=== PATIENT | male | born 1945 | race Caucasian/White ===

== ENCOUNTER → 2020-09-20 | Outpatient (CLI) | payer MEDICARE, OTHER ==
[~2020-09-20] MED LIST: CLOPIDOGREL75 MG PO; ECOTRIN81 MG PO; FOLIC ACID 1 MG1 MG PO; HYDROCODON-ACE1 EAC4 PO; K-DUR TAB 10 M10 MEQ PO; LEVOFLOXACIN500 MG PO; LOPRESSOR 25 MG25 MG PO; LORTAB 5-325 M1 EACH PO; OMNICEF 300 MG300 MG PO; PRINIVIL20 MG PO; ZANTAC300 MG PO
== END ==
LOC: KOH-I 10:41
DX: M54.5 Low back pain (principal); M54.89 Other dorsalgia; M47.816 Spondylosis without myelopathy or radiculopathy, lumbar region
CPT/HCPCS: 72110

== ENCOUNTER 2020-10-02 15:55 | Emergency (ER) | payer MEDICARE, OTHER ==
[~2020-10-02 15:55] MED LIST changes: -HYDROCODON-ACE1 EAC4 PO; -OMNICEF 300 MG300 MG PO
[2020-10-02] MEDS ORDERED: HYDROCODON-ACE1 EAC4 PO (19:46)
[2020-10-02] MEDS ORDERED: OMNICEF 300 MG300 MG PO (19:46)
== END 2020-10-02 20:19 | disposition home or self-care (01) ==
LOC: ER1 15:55
DX: M51.36 Other intervertebral disc degeneration, lumbar region (principal); N39.0 Urinary tract infection, site not specified; I11.9 Hypertensive heart disease without heart failure; J44.9 Chronic obstructive pulmonary disease, unspecified; I10 Essential (primary) hypertension; Z95.1 Presence of aortocoronary bypass graft
CPT/HCPCS: 72131; 73502; 81001; 99284

== ENCOUNTER → 2020-11-28 | Outpatient (CLI) | payer MEDICARE, OTHER ==
[~2020-11-28] MED LIST changes: +HYDROCODON-ACE1 EAC4 PO; +OMNICEF 300 MG300 MG PO
== END | disposition home or self-care (01) ==
LOC: CT 11-03 08:00 → RAD 11-03 08:00
DX: M51.16 Intervertebral disc disorders with radiculopathy, lumbar region (principal); M48.061 Spinal stenosis, lumbar region without neurogenic claudication; M48.07 Spinal stenosis, lumbosacral region; M25.78 Osteophyte, vertebrae
CPT/HCPCS: 72132; Q9966

== ENCOUNTER 2021-04-12 05:47 | Emergency (ER) | payer MEDICARE, OTHER ==
[2021-04-12 06:49] LABS: HEMOGLOBIN 14.8 gm/dl (14.0-17.5); RED BLOOD COUNT 4.88 M/UL (4.20-5.50); WHITE BLOOD COUNT 10.3 K/UL (4.5-11.0)
[2021-04-12 07:08] LABS: BUN/CREATININE RATIO 24 (0-10)
[2021-04-12] MEDS ORDERED: ZOFRAN ODT 4 MG4 MG PO (11:11)
[2021-04-12] MEDS ORDERED: BENTYL 10MG CAP10 MG PO (11:11)
[2021-04-12] MEDS ORDERED: PEPCID20 MG PO (11:11)
== END 2021-04-12 11:28 | disposition home or self-care (01) ==
LOC: ER1 05:47
PROVIDERS: Family Medicine
DX: K80.20 Calculus of gallbladder without cholecystitis without obstruction (principal); I12.9 Hypertensive chronic kidney disease with stage 1 through stage 4 chronic kidney disease, or unspecified chronic kidney disease; N18.9 Chronic kidney disease, unspecified; E11.22 Type 2 diabetes mellitus with diabetic chronic kidney disease; E78.5 Hyperlipidemia, unspecified; Z79.02 Long term (current) use of antithrombotics/antiplatelets; Z87.891 Personal history of nicotine dependence
CPT/HCPCS: 71045; 80053; 81001; 82550; 82553; 83690; 83874; 84484; 85025; 93005; 96372; 96374; 96375; 99284; G0480; J0500; J2405; Q9967

== ENCOUNTER 2022-05-01 19:13 | Observation (INO) | payer MEDICARE, OTHER ==
[~2022-05-01] VITALS: Ht 180.3 cm; Wt 81.6 kg
[~2022-05-01 19:13] MED LIST changes: +BENTYL 10MG CAP10 MG PO; +PEPCID20 MG PO; +ZOFRAN ODT 4 MG4 MG PO
[2022-05-01 20:37] LABS: HEMOGLOBIN 15.7 gm/dl (14.0-17.5); RED BLOOD COUNT 5.12 M/UL (4.20-5.50); WHITE BLOOD COUNT 12.5 K/UL (4.5-11.0)
[2022-05-02 08:21] LABS: HEMOGLOBIN 15.9 gm/dl (14.0-17.5); RED BLOOD COUNT 5.31 M/UL (4.20-5.50)
[2022-05-03 07:53] LABS: HEMOGLOBIN 13.7 gm/dl (14.0-17.5); RED BLOOD COUNT 4.77 M/UL (4.20-5.50); WHITE BLOOD COUNT 9.2 K/UL (4.5-11.0)
[2022-05-04 04:09] LABS: HEMOGLOBIN 14.4 gm/dl (14.0-17.5); RED BLOOD COUNT 4.8 M/UL (4.20-5.50)
[2022-05-04] MEDS ORDERED: ASPIRIN EC81 MG PO (12:29)
[2022-05-04] MEDS ORDERED: AMLODIPINE BESYL5 MG PO (12:29)
[2022-05-04] MEDS ORDERED: PROTONIX40 MG PO (12:29)
[2022-05-04] MEDS ORDERED: PHENERGAN 25 MG25 M1 PO (12:29)
[2022-05-04] MEDS ORDERED: ZOFRAN ODT 4 MG4 MG PO (12:29)
[2022-05-04] MEDS ORDERED: CARVEDILOL25 MG PO (12:29)
[2022-05-04] MEDS ORDERED: AMOX TR-K CLV1 EAC4 PO (12:29)
[2022-05-04] MEDS ORDERED: HYDRALAZINE HCL50 MG PO (12:29)
[2022-05-04] MEDS ORDERED: ATORVASTATIN CA20 MG PO (12:29)
[2022-05-04] MEDS ORDERED: METFORMIN HCL1000 MG PO (12:30)
[2022-05-08 08:14] LABS: HEMOGLOBIN A1C 8.6 % (4.8-5.6)
== END 2022-05-04 14:52 | disposition home or self-care (01) ==
LOC: ER1 19:13 → CDU 23:18 → MED SURG 4 05-02 16:56
PROVIDERS: Emergency Medicine; Internal Medicine; ADMIT Internal Medicine
DX: K80.20 Calculus of gallbladder without cholecystitis without obstruction (principal); N17.9 Acute kidney failure, unspecified; F15.10 Other stimulant abuse, uncomplicated; R13.10 Dysphagia, unspecified; I11.0 Hypertensive heart disease with heart failure; I50.9 Heart failure, unspecified; I25.10 Atherosclerotic heart disease of native coronary artery without angina pectoris; I49.5 Sick sinus syndrome; I25.2 Old myocardial infarction; E11.9 Type 2 diabetes mellitus without complications; Z20.822 Contact with and (suspected) exposure to COVID-19; Z95.1 Presence of aortocoronary bypass graft; Z95.0 Presence of cardiac pacemaker; Z88.8 Allergy status to other drugs, medicaments and biological substances; Z88.5 Allergy status to narcotic agent; Z79.84 Long term (current) use of oral hypoglycemic drugs; Z79.82 Long term (current) use of aspirin; Z79.899 Other long term (current) drug therapy
CPT/HCPCS: 36600; 70450; 71045; 71250; 76705; 78226; 80048; 80053; 80307; 81001; 82550; 82553; 82803; 82977; 83036; 83605; 83690; 83735; 83880; 84100; 84484; 85025; 85610; 86140; 87040; 87086; 93005; 96372; 96374; 96375; 96376; 97116; 97161; 97165; 97530; 97530-GP-CQ; 99285; A9537; C9113; G0378; G0480; J0360; J1650; J2405; J2543; J2550; J2805; U0002